=== PATIENT | female | born 2000 | race African-American/Black ===

== ENCOUNTER 2020-04-07 01:46 | Emergency (ER) | payer SELFPAY ==
--- NOTE | 2020-04-07 02:26 | ER Document Report ---
ED General - General Chief Complaint: Seizure Stated Complaint: POSSIBLE SEIZURE Time Seen by Provider: 04/07/20 02:09 [facility] - 04/08/20 - HPI Onset: Just prior to arrival Context: This is a 19-year-old female presenting by EMS for evaluation of seizure activity after ingesting "Jell-O shots" and ingesting some sort of "edible" cannabis-based derivative product. Apparently the patient did the gel shots and had the CBD edible for having dinner with her parents. Patient was reported to have a couple of brief episodes of generalized tonic-clonic activity at her home. EMS was called and the patient was able to ambulate on her own to the ambulance. After the patient got into the ambulance, she was reported to have 2 more episodes of generalized tonic-clonic seizure activity. No urinary or fecal incontinence was reported. Patient was given Versed by the EMS crew. Patient states she had seizures as a child which he reports she outgrew and has not had to take medication for seizures since. Patient denies fever, chills, chest pain, shortness of breath, history of COVID-19 infection, loss of sense of taste or loss of sense of smell, known exposure to Covid 19+ persons or persons under investigation for COVID-19. Patient denies any exacerbating or alleviating symptoms. Patient denies having any pain at this time. Associated symptoms: None Exacerbated by: Denies Relieved by: Denies Past Medical History - General Information source: Patient, Emergency Med Personnel - Social History Smoking Status: Never Smoker Chew tobacco use (# tins/day): No Frequency of alcohol use: Occasional Drug Abuse: None Family History: Reviewed & Not Pertinent Patient has homicidal ideation: No Physical Exam - Vital signs Vitals: Temp 97.6 F 04/07/20 01:48 Course - Re-evaluation Re-evalutation: 04/07/20 03:45 Patient was asked if she wanted her mother in the room when I told her the results of her tests. Patient stated that she did want her mother to be in the room. This MD related all the results of the patient's ED MSE, including the fact that the patient has a positive urine test. When asked about the patient's menstrual cycles, patient states her last menstrual period was in December of this year. Patient states she had an "a few weeks ago." Patient states that she has had sexual intercourse since the . This MD asked the patient if she had a local primary care provider. Patient's mother stated that she was off of college and came home because of the Covid pandemic. Mother states that the patient does not currently have a PCP. Patient was instructed to avoid CBD products, alcohol, or other medications or substances that are contraindicated during . This MD discussed with the patient and patient's mother that this could be residual hCG in her system from a aborted or it could be present because of the new . The patient was instructed to follow-up with the health department on 04/08/2020 for further evaluation. All questions were answered prior to discharge. Emergency signs and symptoms, reasons to return to the emergency department discussed with patient and patient's mother. - Vital Signs Vital signs: Temp Pulse Resp BP Pulse Ox 98.7 F 117 H 16 111/69 99 04/07/20 04:19 04/07/20 04:19 04/07/20 04:19 04/07/20 04:19 04/07/20 04:19 - Laboratory Result Diagrams: 04/07/20 02:00 04/07/20 02:00 Laboratory results interpreted by me: 04/07/20 04/07/20 04/07/20 02:00 02:00 02:00 WBC 11.8 H Hgb 9.4 L Hct 29.7 L MCV 79 L MCH 25.1 L MCHC 31.8 L RDW 14.4 H Seg Neuts % (Manual) 27 L Lymphocytes % (Manual) 57 H Abs Lymphs (Manual) 7.3 H Sodium 136.9 L Alkaline Phosphatase 30 L Serum HCG, Qual POSITIVE H - EKG Interpretation by Me Additional EKG results interpreted by me: 04/07/20 03:49 EKG obtained on 04/07/2020 at 0200 hrs. was interpreted by this MD. Findings sinus tachycardia, rate 118, normal axis, NE intervals appears to be within normal limits, P waves preceding QRS complexes, QRS complexes are narrow, QTC is 432, there were no obvious patterns of ST segment elevation, depression or reciprocal change seen to suggest acute myocardial ischemia or infarction. Impression: Sinus tachycardia with nonspecific ST segments Discharge - Discharge Clinical Impression: Seizure, Adverse effect of cannabis (derivatives), initial encounter, Positive urine test Condition: Stable Disposition: HOME, SELF-CARE Additional Instructions: Return to the Emergency Department without delay if any worse. You have a positive test. [place] [facility] [place] further evaluation of your status. You should avoid alcohol, CBD products, illicit drug use, or any other substance or medication not recommended for use during . HOME CARE INSTRUCTIONS & INFORMATION: Thank you for choosing us for your medical needs. We hope you're satisfied with the care you received. After you leave, you must properly care for your problem and, at the same time, observe its progress. Any condition can change. Some illnesses can change rapidly over hours or days. If your condition worsens, return to the Emergency Department or see your physician promptly. ABOUT YOUR X-RAYS AND EKG'S: If you had an EKG or X-rays taken, they have been read by the Emergency Physician. The X-rays and EKG's will also be read by a Radiologist or Mine Engineer within 24 hours. If discrepancies are noted, you will be notified by telephone. Please be certain the ED has a correct telephone number & address where you can be reached. Also, realize that some fractures or abnormalities do not show up on initial X-rays. If your symptoms continue, see your physician. ABOUT YOUR LABORATORY TEST: If you had laboratory tests, the results have been reviewed by the Emergency Physician. Some test results (for example cultures) may not be available for several days. You will be contacted if any test result shows you need additional treatment. Please be certain the ED has a correct telephone number and address where you can be reached. ABOUT YOUR MEDICATIONS: You will receive instructions on how to take your medicine on the prescription label you receive. Additional information may be provided by the Pharmacy. If you have questions afterwards, call the ED for clarification or further instructions. Some prescribed medications may cause drowsiness. Do not perform tasks such as driving a car or operating machinery without consulting your Pharmacist. If you feel you need a refill of pain medication, your condition will need re-evaluation. Please do not call for a refill of any medication. ABOUT YOUR SIGNATURE: Signature of this document acknowledges to followin. Understanding that you received emergency treatment and that you may be released before al medical problems are known or treated. Please be certain the ED has a correct phone number & address where you can be reached. 2. Acknowledgement that you will arrange for follow-up care as recommended. 3. Authorization for the Emergency Physician to provide information to your follow-up Physician in order to maximize your care. AT ANY TIME, IF YOUR SYMPTOMS CHANGE SIGNIFICANTLY OR WORSEN OR YOU DEVELOP NEW SYMPTOMS, RETURN TO THE EMERGENCY DEPARTMENT IMMEDIATELY FOR RE-EVALUATION. OUR GOAL IS TO PROVIDE EXCELLENT MEDICAL CARE! WE HOPE THAT WE HAVE MET YOUR EXPECTATIONS DURING YOUR EMERGENCY DEPARTMENT VISIT AND THAT YOU FEEL YOU HAVE RECEIVED EXCELLENT CARE! Seizure You have had a seizure. Seizure disorders (epilepsy) of one sort or an other affect about one out of 50 people. The seizure occurs because of abnormal electrical activity in the brain. Seizures may be due to drugs and alcohol, strokes, brain injury, or infection. In the most common form of epilepsy, no cause can be found. You will require further evaluation to determine the cause of your seizure, and to determine whether anti-seizure medication is required. This follow-up testing is important, so please call us if you encounter problems with scheduling of tests or appointments. YOU SHOULD NOT DRIVE until released to do so by your physician. The law requires that seizures be reported to the backhaul driver's license bureau--a seizure while driving could be catastrophic. Call the doctor if seizures recur, or if you develop new symptoms such as fever, severe headache, stiff neck, confusion or increasing sleepiness, weakness or numbness, or visual problems. [facility]
[2020-04-07 02:36] LABS: APPEARANCE,URINE CLEAR; BILIRUBIN,URINE NEGATIVE (NEGATIVE); COLOR,URINE YELLOW; GLUCOSE, URINE NEGATIVE (NEGATIVE); KETONES,URINE NEGATIVE (NEGATIVE); LEUKOCYTE ESTERASE,URINE NEGATIVE (NEGATIVE); NITRITE,URINE NEGATIVE (NEGATIVE); PROTEIN,URINE NEGATIVE (NEGATIVE); URINE SPECIFIC GRAVITY 1.021; UROBILINOGEN,URINE NEGATIVE mg/dL (<2.0)
[2020-04-07 02:37] LABS: HEMATOCRIT 29.7 % (36.0-47.0); HEMOGLOBIN 9.4 g/dL (12.0-15.5); MEAN CORPUSCULAR HEMOGLOBIN 25.1 pg (27.0-33.4); MEAN CORPUSCULAR HGB CONC 31.8 g/dL (32.0-36.0); MEAN CORPUSCULAR VOLUME 79 fl (80-97); PLATELET COUNT 356 10^3/uL (150-450); RED BLOOD COUNT 3.76 10^6/uL (3.72-5.28); RED CELL DISTRIBUTION WIDTH 14.4 % (11.5-14.0); WHITE BLOOD COUNT 11.8 10^3/uL (4.0-10.5)
[2020-04-07 02:49] LABS: ALBUMIN 4.6 g/dL (3.5-5.0); ALKALINE PHOSPHATASE 30 U/L (38-126); ANION GAP 15 (5-19); ASPARTATE AMINO TRANSFERASE 18 U/L (14-36); BILIRUBIN,DIRECT 0.1 mg/dL (0.0-0.4); BILIRUBIN,TOTAL 0.2 mg/dL (0.2-1.3); BLOOD UREA NITROGEN 13 mg/dL (7-20); CARBON DIOXIDE 22 mmol/L (22-30); CHLORIDE 100 mmol/L (98-107); GLUCOSE 110 mg/dL (75-110); POTASSIUM 4.1 mmol/L (3.6-5.0); TOTAL PROTEIN 7.8 g/dL (6.3-8.2)
[2020-04-07 02:53] LABS: ALCOHOL < 10 mg/dL (NONE DETECTED)
[2020-04-07 02:56] LABS: URINE AMPHETAMINES SCREEN NEGATIVE; URINE BARBITURATES SCREEN NEGATIVE; URINE COCAINE SCREEN NEGATIVE; URINE METHADONE SCREEN NEGATIVE; URINE PHENCYCLIDINE SCREEN NEGATIVE
[2020-04-07 03:05] LABS: URINE BENZODIAZEPINES SCREEN UNCONFIRMED POSITIVE
[2020-04-07 03:06] LABS: URINE MARIJUANA (THC) SCREEN UNCONFIRMED POSITIVE
[2020-04-07 03:13] LABS: ABSOLUTE LYMPHOCYTES# (MANUAL) 7.3 10^3/uL (0.5-4.7); ABSOLUTE MONOCYTES # (MANUAL) 1.1 10^3/uL (0.1-1.4); BASOPHILS % (MANUAL) 0 % (0-2); EOSINOPHILS % (MANUAL) 2 % (0-6); LYMPHOCYTES % (MANUAL) 57 % (13-45); MONOCYTES % (MANUAL) 9 % (3-13); SEGMENTED NEUTROPHILS % (MAN) 27 % (42-78); TOTAL CELLS COUNTED 100
[2020-04-07 03:14] LABS: ANISOCYTOSIS SLIGHT; PLATELET COMMENT ADEQUATE
[2020-04-07 03:15] LABS: HYPOCHROMASIA 1+
[2020-04-07 03:16] LABS: POLYCHROMASIA SLIGHT; SCHISTOCYTES SLIGHT; TARGET CELLS SLIGHT
[2020-04-07 04:20] VITALS: BP 111/69
--- NOTE | 2020-04-07 09:10 | EKG REPORT ---
SEVERITY:- BORDERLINE ECG - SINUS TACHYCARDIA BORDERLINE T ABNORMALITIES, ANTERIOR LEADS : Confirmed by: Mimi Jarvis 07-Apr-2020 09:10:18
== END 2020-04-07 04:20 | disposition home or self-care (01) ==
LOC: ER 01:46
DX: R56.9 Unspecified convulsions (principal); T40.7X5A Adverse effect of cannabis (derivatives), initial encounter; R00.0 Tachycardia, unspecified; Z32.01 Encounter for pregnancy test, result positive
CPT/HCPCS: 36415; 80053; 80307; 81001; 83735; 84703; 85025; 93005; 93010; 99284